=== PATIENT | female | born 1940 | race Caucasian/White ===

== ENCOUNTER 2016-10-27 22:15 | Inpatient (IN) | payer MEDICARE ==
--- NOTE | ~2016-10-27 | CR63 ---
[facility] A Service of [facility] RADIOLOGY TEXT RESULTS PATIENT: HOLDEN GARCIA LOCATION: [facility] 567-01 : 39 UNIT #: [id number] AGE: [address]: Yesy Pan MD SEX: F ORDER DR: [id number] [facility] [address] [place], [place] [address] [id number] I MR#: [id number] Acc #: [id number] NAME: HOLDEN GARCIA. : 1940 SEX: F STUDY DATE/TIME: 10/27/2016 22:41 UNIT: CEDOF ROOM: 65087 STUDY DESCRIPTION: CR Chest 2 View Attending Physician: Magnolia Wallace M.D. Ordering Physician: Bryson Chino D.O. Primary Care Physician: David Barajas M.D. MEDICAL IMAGING REPORT This report is preliminary unless electronic signature is present EXAM Two-view chest 10/27/2016 INDICATIONS 76-year-old female with weakness, right-sided hip and leg pain, laid on the floor all last night after fall. History of skin cancer. TECHNIQUE Two-view chest compared with 12/14/2011 FINDINGS Cardiac silhouette is enlarged and stable. Lung volumes are low. There is interstitial prominence throughout both lungs favored to represent chronic interstitial fibrosis rather than acute mild vascular congestion. Correlate with volume status. There is old healed granulomatous disease. No pneumothorax or effusion. Hiatal hernia present. Bones are osteoporotic. IMPRESSION 1. Cardiomegaly with low lung volumes and probable chronic fibrosis rather than acute mild volume overload. 2. Osteoporosis and thoracic kyphosis and spondylosis. 3. Hiatal hernia. Dictated by... Evangelist Blanc M.D. THIS IS AN ELECTRONICALLY VERIFIED REPORT Evangelist Blanc M.D. at 10/28/2016 9:56 PM Annie TD: 10/28/2016 07:01 JOB #: [id number] [facility] A Service of [facility] RADIOLOGY TEXT RESULTS PATIENT: HOLDEN GARCIA LOCATION: [facility] 567-01 : 39 UNIT #: [id number] AGE: [address]: Yesy Pan MD SEX: F ORDER DR: MEDICAL IMAGING REPORT Page 1 of 1 COPY
--- NOTE | ~2016-10-27 | US84 ---
[id number] [facility] [address] [place], [place] [address] [id number] I MR#: [id number] Acc #: [id number] NAME: HOLDEN GARCIA : 1940 SEX: F STUDY DATE/TIME: 10/28/2016 8:12 UNIT: [facility] ROOM: 21111 STUDY DESCRIPTION: US LE Veins Complete Dhruv Stdy Attending Physician: Yesy Pan M.D. Ordering Physician: Magnolia Wallace M.D. Primary Care Physician: David Barajas M.D. MEDICAL IMAGING REPORT This report is preliminary unless electronic signature is present EXAM Bilateral lower extremity venous Doppler INDICATION Bilateral leg pain for the past several years. PROCEDURE Hamilton-scale, color Doppler and spectral imaging deep veins of the right and left leg. COMPARISON None. FINDINGS Deep veins in right and left leg compress normally, show normal color Doppler and spectral characteristics. IMPRESSION No evidence for DVT in the right or left leg. Dictated by... Jed Baez M.D. THIS IS AN ELECTRONICALLY VERIFIED REPORT Jed Baez M.D. at 10/29/2016 9:38 AM YURY/taylor TD: 10/28/2016 09:47 JOB #: [id number] MEDICAL IMAGING REPORT Page 1 of 1 COPY
--- NOTE | ~2016-10-27 | CR107 ---
[facility] A Service of [facility] RADIOLOGY TEXT RESULTS PATIENT: HOLDEN GARCIA LOCATION: [facility] 567-01 : 39 UNIT #: [id number] AGE: [address]: Yesy Pan MD SEX: F ORDER DR: [id number] [facility] [address] [place], [place] [address] [id number] I MR#: [id number] Acc #: [id number] NAME: HOLDEN GARCIA. : 1940 SEX: F STUDY DATE/TIME: 10/27/2016 22:33 UNIT: CEDOF ROOM: 59650 STUDY DESCRIPTION: CR Femur 2 Views Rt Attending Physician: Magnolia Wallace M.D. Ordering Physician: Bryson Chino D.O. Primary Care Physician: David Barajas M.D. MEDICAL IMAGING REPORT This report is preliminary unless electronic signature is present EXAM Right femur, 2 views COMPARISON 2 views of the right hip dated December 14, 2011. INDICATION 76-year-old female with right upper leg pain after falling last night. FINDINGS Surgical clips are noted in the proximal thigh. These extend down to the level of the knee and just below the knee as well in the posterior aspect of the thigh. There are diffuse arterial calcifications within the thigh. There is a large osteophyte at the superior pole of the patella. There is chondrocalcinosis at the lateral compartment of the knee a finding which can be seen in pseudogout. Femur appears anatomically aligned. There is joint space narrowing, sclerosis and osteophyte formation at the right hip. There is somewhat of a pistol pain coordinator deformity of the right femoral head, chronic in nature and degenerative. No evidence of acute fracture. Right femur appears anatomically aligned. IMPRESSION 1. No evidence of acute fracture or dislocation of the right femur. 2. Advanced osteoarthritis of the right hip as described. 3. Large osteophyte superior pole of the patella. 4. Chondrocalcinosis a finding which can be seen in pseudogout or normal aging. 5. Diffuse arterial calcification in the thigh. Dictated by... Arben Leos M.D. [facility]. [facility] A Service of [facility] RADIOLOGY TEXT RESULTS PATIENT: HOLDEN GARCIA LOCATION: [facility] 567-01 : 39 UNIT #: [id number] AGE: [address]: Yesy Pan MD SEX: F ORDER DR: THIS IS AN ELECTRONICALLY VERIFIED REPORT Arben Leos M.D. at 10/30/2016 9:29 AM Tawanda TD: 10/28/2016 06:56 JOB #: [id number] MEDICAL IMAGING REPORT Page 1 of 1 COPY
--- NOTE | ~2016-10-27 | EKG ---
PATIENT: HOLDEN GARCIA UNIT #: [id number] Ventricular Rate: 65 BPM Atrial Rate: 65 BPM P-R Interval: 168 ms QRS Duration: 134 ms Q-T Interval: 442 ms QTC Calculation(Bezet): 459 ms P [place]: 57 degrees Calculated R [place]: 70 degrees Calculated T [place]: 53 degrees Diagnosis Line: Normal sinus rhythm with sinus arrhythmia Diagnosis Line: Right bundle branch block with repolarization Diagnosis Line: abnormality Diagnosis Line: Abnormal ECG Diagnosis Line: No previous ECGs available Diagnosis Line: Confirmed by AUGUSTINE ROBERTS MD ([id number]) on 10/28/2016 Diagnosis Line: 9:19:56 PM INTERPRETING MD: ARMANDO SANCHEZ
--- NOTE | ~2016-10-27 | CR106 ---
[facility] A Service of [facility] RADIOLOGY TEXT RESULTS PATIENT: HOLDEN GARCIA LOCATION: [facility] 567-01 : 39 UNIT #: [id number] AGE: [address]: Yesy Pan MD SEX: F ORDER DR: [id number] [facility] [address] [place], [place] [address] [id number] I MR#: [id number] Acc #: [id number] NAME: HOLDEN GARCIA. : 1940 SEX: F STUDY DATE/TIME: 10/27/2016 22:33 UNIT: CEDOF ROOM: 88927 STUDY DESCRIPTION: CR Femur 2 Views Lt Attending Physician: Magnolia Wallace M.D. Ordering Physician: Bryson Chino D.O. Primary Care Physician: David Barajas M.D. MEDICAL IMAGING REPORT This report is preliminary unless electronic signature is present EXAM Left femur, 2 views. COMPARISON 2 views of the right femur on the same date. INDICATIONS 76-year-old female with left upper leg pain since falling last night. FINDINGS There is chondrocalcinosis within the medial and lateral compartments of the knee, a finding which can be seen in pseudogout. There are arterial calcifications within the left thigh. These extend posterior to the knee. There is bulky osteophyte, superior pole of the patella, with an inferior pole small osteophyte. The left femur appears anatomically aligned. No evidence of acute fracture. Skin fold artifact or artifact from undergarment is noted to pass through the superior and inferior pubic ramus on the left on the single view, which did not persist on the second view. Left femur appears intact. IMPRESSION 1. No evidence of acute fracture or dislocation of the left femur. 2. Chondrocalcinosis of the knee, a finding which can be seen in normal aging or pseudogout. 3. Diffuse arterial calcification in the left thigh. Dictated by... Arben Leos M.D. THIS IS AN ELECTRONICALLY VERIFIED REPORT Arben Leos M.D. at 10/30/2016 9:28 AM KEDAR/lisette [facility]. [facility] A Service of [facility] RADIOLOGY TEXT RESULTS PATIENT: HOLDEN GARCIA LOCATION: [facility] 567-01 : 39 UNIT #: [id number] AGE: [address]: Yesy Pan MD SEX: F ORDER DR: TD: 10/28/2016 07:26 JOB #: [id number] MEDICAL IMAGING REPORT Page 1 of 1 COPY
--- NOTE | ~2016-10-27 | HM ---
Unit #: [id number] #: [id number] Patient: HOLDEN GARCIA [id number] [address] [place], [place] [address] [id number] I MR#: [id number] NAME: HOLDEN GARCIA. : 1940 SEX: F STUDY DATE/TIME: 10/30/2016 UNIT: [facility] ROOM: 567 STUDY DESCRIPTION: Holter monitor Attending Physician: Radha Reich M.D. Primary Care Physician: David Barajas M.D. CARDIOLOGY REPORT EXAM Holter monitor. DATE APPLIED 10/30/2016 DATE SCANNED 11/02/[address] Gareth Quintana READ BY Dr. Gareth Quintana INDICATION Falls FINDINGS 1. The rhythm is normal sinus. Minimum recorded heart rate is 39 beats per minute, maximum recorded heart rate 110 beats per minute. 2. Very frequent premature ventricular contractions are noted, unifocal and multiform. There were 9,503 isolated PVCs and 149 premature ventricular couplets. There was no run of ventricular tachycardia. Computer misinterpreted SVT as ventricular tachycardia. Very frequent premature atrial contractions are noted with 11,271 isolated PACs and 576 premature atrial couplets. There were 131 runs of supraventricular tachycardia. A four beat run of SVT is seen at 3:19 p.m. at a rate of 152 beats per minute. All runs of SVT convert back to normal sinus rhythm without intervening bradycardia. There were no periods of AV jeanette block, sinus arrest or sinus pause. 3. The patient did not report any symptoms or maintain an activity diary. IMPRESSION Abnormal 24-hour ambulatory monitoring shows: 1. Normal sinus rhythm. 2. Frequent PVCs. 3. Very frequent PACs. 4. Paroxysmal supraventricular tachycardia with right bundle branch block aberrant conduction. 5. No high-grade AV block, sinus arrest or sinus pause. 6. No symptom diary was maintained. Unit #: [id number] #: [id number] Patient: HOLDEN GARCIA Dictated by... Gareth Quintana M.D. AKU/gaston TD: 11/06/2016 06:06 JOB #: [id number] CARDIOLOGY REPORT Page 1 of 1 X Gareth Quintana MD HOLTER MONITOR REPORT
--- NOTE | ~2016-10-27 | CO ---
Unit #: [id number] #: [id number] Patient: HOLDEN WHITFIELD [id number] [facility] [address] [place], [place] [address] [id number] I MR#: [id number] NAME: HOLDEN WHITFIELD. ROOM: 567 Age: 76 Sex: F Admission Date: 10/28/2016 : 1940 Attending Physician: Radha Reich M.D. Primary Care Physician: David Barajas M.D. Consultation Date: 10/30/2016 CONSULTATION REPORT REASON FOR CONSULTATION Sinus bradycardia, PVCs, PACs. HISTORY OF PRESENT ILLNESS This is a 76-year-old white female who has a known history of having ischemic cardiomyopathy with a history of CABG back in 1999 and in 2011 had a cardiac catheterization by Dr. Quintana here at [facility] that showed three of four grafts were patent. The saphenous vein graft to the marginal branch was occluded but had collaterals, and there was also found an 80% stenosis in the proximal RCA. Also, at the time of the heart catheterization, her LVEF was found to be 20%. He thought it was Takotsubo cardiomyopathy. Previous echo showed her EF was 60%. He recommended medical management. According to the patient, she has never followed up with any business writer since that time. She used to see Dr. Miranda with another cardiology practice in [facility] but has not seen him in some time. Patient was admitted two days ago after she was walking in her home and her gait became unsteady, her legs gave out, and she fell. She reports to me that she did not have a syncopal episode. She says that she has been falling frequently. One day a few weeks ago she fell four times in one day. This time she states she was walking in the [place], and then she said she could tell her legs were giving out. She said that is usually what happens. Her legs gave way, and she fell on the floor. She denied any acute injury, but she was too weak to pull herself up. She did have her house phone nearby, but she did not want to call her children because she thought they would be at work. She estimates that she was laying down on the floor for about 15 hours. She denied any dizziness. As mentioned, she does not think she passed out. No loss of bowel or bladder. She denied any chest pain, pain in her neck or bilateral jaws, shoulders, arms, or elbows, no palpitations, and no shortness of breath. She has not had any recent nausea, vomiting, diarrhea, or abdominal pain, and no fever or chills. Patient has been treated since admission for some mild rhabdo and a UTI. She was hypotensive after receiving some IV morphine and lisinopril. That has been stopped yesterday. Her labs also show pancytopenia, and she initially thought she might have been septic, but she has been afebrile and her blood pressure is more stable. Her EKG on admission showed sinus rhythm with a right bundle branch block. She does have a Holter on and today is showing some sinus rhythm with frequent PACs and frequent PVCs with compensatory pauses, then her heart rate slows down to the upper 30s, and patient is asymptomatic. We have been consulted to assist with evaluation and management. Unit #: [id number] #: [id number] Patient: HOLDEN WHITFIELD PAST MEDICAL HISTORY 1. Ischemic cardiomyopathy. 2. Coronary artery disease with history of coronary artery bypass graft in 1999. 3. Last reported cardiac cath was in 2011 which revealed a patent WHITMORE to the LAD, patent saphenous vein graft to the PDA branch of the RCA, patent saphenous vein graft to the first diagonal branch of the LAD, occluded saphenous vein graft to the marginal branch of the circumflex that was filling with collaterals, and also an 80% stenosis in the proximal RCA. Left ventricular ejection fraction was 20%. Takotsubo cardiomyopathy with noted previous ejection fraction of 60%. Recommendation by Dr. Quintana was medical management and followup. 4. A 2D echo in 2012 showed an LVEF of 10% to 15% with large area of anterior, anteroseptal, and apical akinesis consistent with a myocardial infarction, mild to moderate mitral regurgitation and mild to moderate tricuspid regurgitation with elevated RVSP of 40-50 mmHg. 5. Hypertension. 6. Hyperlipidemia. 7. Hypothyroidism. 8. Degenerative joint disease and chronic back pain. 9. Gastroesophageal reflux disease. 10. Anxiety and depression. 11. Reformed smoker. 12. Frequent falls. PAST SURGICAL HISTORY 1. Coronary artery bypass graft in 1999. 2. Cholecystectomy. 3. Hysterectomy. 4. Appendectomy. 5. Melanoma removed from the face. HOME MEDICATIONS 1. Celexa 40 mg p.o. daily. 2. Lisinopril 10 mg p.o. daily. 3. Lipitor 40 mg p.o. daily. 4. Synthroid 0.088 mg daily. 5. Neurontin 200 mg p.o. 3 times daily. 6. Ultram 50 mg p.o. 3 times daily as needed. 7. Lasix dosage unavailable but patient states she takes it p.r.n. ALLERGIES SULFONAMIDES SOCIAL HISTORY Patient lives in her own home alone. She lives with her dog. We have been told her daughter lives nearby. She uses a cane and walker and she has a wheelchair. She quit smoking about 20 years ago and no alcohol or illicit drug abuse. FAMILY HISTORY Both parents are from unknown causes. She had a sister who at the age of 57 from a myocardial infarction. REVIEW OF SYSTEMS See details in History of Present Illness. Unit #: [id number] #: [id number] Patient: HOLDEN WHITFIELD PHYSICAL EXAMINATION GENERAL: On exam, Miss Whitfield is a 76-year-old white female in no acute respiratory distress. She is awake, alert, and answers most questions appropriately. She has some noted poor memory recall. VITAL SIGNS: Blood pressure 124/58, heart rate 53, respirations 18, temperature 98.3, and oxygen saturations 93% on room air. NECK: Trachea midline. No thyromegaly or lymphadenopathy. Normal carotid upstrokes. No jugular venous distention. HEART: S1 and S2, regular rate and rhythm. Soft systolic murmur left sternal border. LUNGS: Some bilateral fine rales in the bases. ABDOMEN: Obese, soft, and nontender. EXTREMITIES: Pedal pulses are palpable. There is 1+ pedal edema. DIAGNOSTIC STUDIES LABORATORY: Today's labs: Glucose 78, BUN 12, creatinine 0.9, eGFR 61.7, sodium 135, potassium 3.7, chloride 109, CO2 of 23, and calcium 7.7. On admission, patient's creatinine was 1.2 with an eGFR of 43.6. Total protein 7.3, albumin 3.7, bilirubin total 1, AST 84, ALT 22, and alkaline phosphatase is 121. BNP on admission was 329. TSH was 0.32 and then increased her Synthroid at 0.35. WBC 3, hemoglobin 10.4, hematocrit 31.6, and platelets 110,000. On admission, patient's hemoglobin was 12.5 and hematocrit 38.9. Urinalysis shows 1+ leukocyte esterase, 1+ protein, 1 urobilinogen, 1+ blood, 5-10 RBCs, and 10-25 WBCs. Blood cultures are negative preliminary report. Urine culture preliminary report negative. IMAGING: Chest x-ray shows cardiomegaly with low lung volumes and probable chronic fibrosis rather than acute mild volume overload, osteoporosis and thoracic kyphosis and spondylosis, and hiatal hernia. CT of the head without contrast shows atrophy and chronic ischemic changes. Ultrasound of bilateral lower extremities shows no evidence of DVT. CARDIOLOGY: EKG on admission shows normal sinus rhythm with a right bundle branch block. Telemetry today shows sinus bradycardia with frequent premature atrial contractions and frequent premature ventricular contractions with compensatory pause with heart rate as slow as 38 beats per minute. IMPRESSION 1. Frequent falls with lower extremity weakness. 2. Questionable syncope versus near syncope. 3. Mild rhabdomyolysis. 4. Premature atrial contractions, premature ventricular contractions, and sinus bradycardia. 5. Coronary artery disease with previous coronary artery bypass graft in 1999 with three of four grafts found patent on 2012 catheterization. 6. History of Takotsubo cardiomyopathy with left ventricular ejection fraction of 20% back in 2012. 7. Hypertension. 8. Hyperlipidemia. 9. Neuropathy. 10. Pancytopenia. 11. Hypothyroidism. 12. Hyperlipidemia. PLAN 1. Cardiology consulted to assist with evaluation and management. Unit #: [id number] #: [id number] Patient: HOLDEN WHITFIELD Reviewed patient's medications she is currently on and there is nothing that is thought to slow her heart rate down. She has a 24-hour Holter on. Patient's TSH level was 0.32 and her Synthroid was increased. Today, TSH is 0.35. 2. Will stop her IV fluids, and because she has had increased lower extremity edema and a few faint rales in her bases, will check a BNP. Patient's creatinine is 0.9 today and had mild rhabdo on admission so will not give any IV Lasix at his point but wait for the labs. She does not have any acute distress. 3. Check a magnesium level because she is having occasional frequent PVCs. Her potassium level is 3.7. 4. Obtain a 2D echo to reevaluate her LV function and valves. 5. Obtain a fasting lipid profile and evaluate. 6. Cardiac enzymes initially on admission were negative. Her EKG does not show any acute ischemia. 7. Her rhythm may be secondary from ischemia or cardiomyopathy. 8. Further recommendations pending per Dr. Quintana. Thank you very much for allowing us to assist in her care. Dictated by... Tiago WassermanPSundayRNitin for Cheryl Juárez/dev TD: 11/01/2016 17:13 JOB #: [id number] CONSULTATION REPORT Page 1 of 1 X Leslie Huggins APRN X CONSULTATION REPORT
--- NOTE | ~2016-10-27 | DS ---
Unit #: [id number] #: [id number] Patient: HOLDEN GARCIA [id number] [address] [place], [place] [address] [id number] I MR#: [id number] NAME: HOLDEN GARCIA. ROOM: 567 Age: 76 Sex: F Admission Date: 10/28/2016 : 1940 Discharge Date: Attending Physician: Radha Reich M.D. Primary Care Physician: David Barajas M.D. DISCHARGE SUMMARY DISCHARGE SUMMARY/TRANSFER SUMMARY FINAL DIAGNOSES 1. Syncope secondary to sick sinus syndrome. 2. Rhabdomyolysis. 3. Urinary tract infection. SECONDARY DIAGNOSES 1. Ischemic cardiomyopathy with ejection fraction of 10% to 15%. 2. Hypertension. 3. Hyperlipidemia. 4. Hypothyroidism. 5. Degenerative joint disease. 6. Chronic back pain. 7. Anxiety/depression. CONSULTS Cardiology - Dr. Quintana. HOSPITAL COURSE The patient is a 76-year-old female with a history of cardiomyopathy who basically had a syncopal episode at home and had some mild rhabdomyolysis. She was managed on the floor and evaluated by cardiology. Evaluation by cardiology determined that she did have evidence of sick sinus syndrome. The patient has been discussed with Dr. Calderón and the plan at this point is to have her transferred to [facility] for pacemaker installed. She was evaluated, suitable and stable for transfer and will be transferred in stable condition. MEDICATIONS Medications on transfer include: 1. Tylenol 650 mg p.o. q.4 hourly p.r.n. 2. Lovenox 40 mg subcu every 24 hours. 3. Neurontin 100 mg p.o. three times a day. 4. Celexa 40 mg p.o. every morning. 5. Lipitor 40 mg p.o. at bedtime. 6. Motrin 400 mg p.o. every six hours p.r.n. for elevated temperature. 7. Tramadol 50 mg p.o. q.8 hours p.r.n. 8. Protonix 40 mg p.o. daily. 9. Synthroid 75 mcg p.o. q. a.m. 10. Vitamin B12 1000 mcg subcu daily. 11. Ceftriaxone 1 g IV daily for UTI. She will be transferred in a stable condition. Unit #: [id number] #: [id number] Patient: HOLDEN GARCIA Time spent coordinating discharge is about 35 minutes. The patient has been discussed with cardiology service prior to transfer. Should be NPO before transfer. Dictated by... Cheryl Gillespie TD: 11/02/2016 09:30 JOB #: [id number] DISCHARGE SUMMARY Page 1 of 1 X Radha Reich MD X DISCHARGE SUMMARY
--- NOTE | ~2016-10-27 | EKG ---
PATIENT: HOLDEN GARCIA UNIT #: [id number] Ventricular Rate: 62 BPM Atrial Rate: 62 BPM P-R Interval: 154 ms QRS Duration: 126 ms Q-T Interval: 518 ms QTC Calculation(Bezet): 525 ms P [place]: 63 degrees Calculated R [place]: 50 degrees Calculated T [place]: 75 degrees Diagnosis Line: Normal sinus rhythm Diagnosis Line: Right bundle branch block Diagnosis Line: Abnormal ECG Diagnosis Line: No previous ECGs available Diagnosis Line: Confirmed by MELISSA JEAN MD ([id number]) on 11/03/2016 Diagnosis Line: 10:50:57 PM INTERPRETING MD: MIRANDA SANCHEZ
--- NOTE | ~2016-10-27 | CT71 ---
[facility] A Service of [facility] RADIOLOGY TEXT RESULTS PATIENT: HOLDEN GARCIA LOCATION: [facility] [id number] : 39 UNIT #: [id number] AGE: [address]: Yesy Pan MD SEX: F ORDER DR: [id number] [facility] [address] [place], [place] [address] [id number] MR#: [id number] Acc #: [id number] NAME: HOLDEN GRACIA. : 1940 SEX: F STUDY DATE/TIME: 10/27/2016 22:50 UNIT: CEDOF ROOM: 28882 STUDY DESCRIPTION: CT Head Wo Contrast Attending Physician: Magnolia Wallace M.D. Ordering Physician: Bryson Chino D.O. Primary Care Physician: David Barajas M.D. MEDICAL IMAGING REPORT This report is preliminary unless electronic signature is present EXAM Head CT no contrast 10/27/2016 INDICATIONS 76-year-old female with weakness, fell last night, headache, dizziness, confusion. TECHNIQUE Noncontrast CT of the brain was performed. COMPARISON 12/14/2011. This CT exam was performed with one or more of the following radiation dose reduction techniques: automatic exposure control, adjustment of mA and/or kV according to patient size, and iterative reconstruction. FINDINGS CT brain: There is mild generalized atrophy. Sulci and ventricles otherwise unremarkable. No midline shift. No evidence of acute intracranial hemorrhage. There is no mass, mass effect or edema to suggest acute infarct and no extraaxial fluid collections are present. There is some mild periventricular chronic ischemic change. Globes are intact. Bones are intact. Sinuses clear. IMPRESSION Atrophy and chronic ischemic changes. No clearly acute intracranial process. Dictated by... Evangelist Blanc M.D. THIS IS AN ELECTRONICALLY VERIFIED REPORT [facility] A Service of [facility] RADIOLOGY TEXT RESULTS PATIENT: HOLDEN GARCIA LOCATION: [facility] [id number] : 39 UNIT #: [id number] AGE: [address]: Yesy Pan MD SEX: F ORDER DR: Evangelist Blanc M.D. at 10/28/2016 9:57 PM Annie TD: 10/28/2016 06:55 JOB #: [id number] MEDICAL IMAGING REPORT Page 1 of 1 COPY
--- NOTE | ~2016-10-27 | HP ---
Unit #: [id number] #: [id number] Patient: HOLDEN GARCIA [id number] [address] [place], [place] [address] [id number] MR#: [id number] NAME: HOLDEN GARCIA. ROOM: 30224 Age: 76 Sex: F Admission Date: 10/28/2016 : 1940 Attending Physician: Magnolia Wallace M.D. Primary Care Physician: David Barajas M.D. HISTORY AND PHYSICAL CHIEF COMPLAINT Fall versus syncope, patient was found down, mild rhabdo, weakness. HISTORY This pleasant 76-year-old female with ischemic cardiomyopathy, hypertension, DJD, hypothyroidism, is admitted after being found down. The patient is unsure what occurred. Two nights ago she either fell on the floor or passed out. She does not remember. However, she did not want to bother family, and she laid on the floor for 25 hours before she called her family. She was brought to this emergency department late last evening with stable vital signs. Labs are notable for mild rhabdomyolysis. She currently is receiving IV fluids at 150 mL/hour. She is complaining of pain in her thighs and calves, is unable to ambulate secondary to pain. PAST MEDICAL HISTORY 1. Ischemic cardiomyopathy, ejection fraction 10% to 15% with mild to moderate MR and TR on echo 12/2011. Patient is status post four vessel CABG in 1999. 2. Hypertension. 3. Hyperlipidemia. 4. Hypothyroidism. 5. DJD. 6. Chronic back pain. 7. GERD. 8. Anxiety and depression. 9. Melanoma removed from the face. 10. Diverticular disease. 11. Cholecystectomy. 12. Hysterectomy. 13. Appendectomy. ALLERGIES Sulfa. HOME MEDICATIONS I have a Med Rec sheet which lists: 1. Celexa 40 mg daily. 2. Lisinopril 10 mg daily. 3. Lipitor 40 mg daily. 4. Synthroid 0.088 mg daily. 5. Neurontin 200 mg t.i.d. 6. Ultram 50 mg t.i.d. as needed. Unit #: [id number] #: [id number] Patient: HOLDEN GARCIA FAMILY HISTORY CAD. SOCIAL HISTORY The patient lives with Pugly, her dog. Daughter lives near her, I believe. The patient uses a cane and/or walker. She stopped smoking about 20 years ago. Does not drink alcohol. REVIEW OF SYSTEMS Notable for fall versus syncope, leg pain, weakness in the legs, ischemic cardiomyopathy, hypertension, hyperlipidemia, hypothyroidism, DJD, chronic pain, GERD, melanoma, depression, above mentioned surgeries. All other systems were reviewed and are otherwise negative. PHYSICAL EXAMINATION GENERAL APPEARANCE: Pleasant, mildly confused appearing 76-year-old, moderately obese female, currently in no acute distress. VITAL SIGNS: Temperature 98.5, pulse 66, respirations 18, blood pressure 113/55, O2 saturation 97% on room air. HEENT: Eyes PERRLA. Extraocular muscles are intact. Pharynx - poor dentition but benign. NECK: Supple without adenopathy or thyromegaly. CHEST: Clear. CARDIAC: Normal S1 and S2 without definite murmur. ABDOMEN: Bowel sounds are present. No hepatosplenomegaly, tenderness or masses. EXTREMITIES: Without edema. Pedal pulses are present but somewhat diminished. The patient is tender in the thighs and calves and develops quite a bit of discomfort with movement of her legs bilaterally. NEUROLOGIC EXAM: The patient seems a bit confused but is actually alert and oriented x3. Her cranial nerves are intact. She had equal strength throughout but is weak in the legs, possibly in part because of pain. DIAGNOSTIC STUDIES LABORATORY: Admission labs - hematocrit is 38.9, white blood count is 3.9, platelet count is 130. SMA-12 - sodium 133, chloride is 99, AST is 84, alk. phos. 121. CPK is 23,000. BNP is 329. Troponin is negative. Urine - positive leukocyte esterase, blood, with 5-10 red cells, 10-25 white cells but no bacteria. Moderate squamous cells seen. CARDIOVASCULAR: EKG - normal sinus rhythm, rate 65 with an old right bundle branch block noted. Occasional APC noted. IMAGING: Head CT - atrophy, small vessel ischemic disease but nothing acute. X-rays of the femurs bilaterally negative for fracture. DJD noted, along with chondrocalcinosis and arterial calcification. Chest x-ray - cardiomegaly, low lung volumes, likely chronic fibrosis, hiatal hernia. ASSESSMENT 1. Fall versus syncope: The patient was on the floor for 25 hours. Has Unit #: [id number] #: [id number] Patient: HOLDEN GARCIA mild rhabdomyolysis and complains of thigh and calf pain. 2. Mild rhabdomyolysis. 3. Ischemic cardiomyopathy, ejection fraction 10% to 15% on echo 2011, status post four vessel coronary artery bypass graft. 4. Essential hypertension. 5. Hypothyroidism. 6. Degenerative joint disease. 7. Mild pyuria but positive squamous cells seen. 8. Perhaps some mild dementia, I am unsure at this point. PLANS 1. Gentle IV fluids in the ER, then Hep-Lock. 2. Recheck labs this morning and repeat cardiac enzymes. 3. Holter monitor. 4. Obtain TSH and B12 levels. 5. Obtain venous Dopplers of the legs. 6. DVT prophylaxis. 7. tipple worker and physical therapy to see. 8. Await urine cultures and will give one dose of antibiotics. Dictated by Cheryl Tejada/df TD: 10/28/2016 06:42 JOB #: [id number] HISTORY AND PHYSICAL Page 1 of 1 X Magnolia Wallace MD X HISTORY AND PHYSICAL
[~2016-10-27 22:15] MED LIST: ALPRAZOLAM ER1 MG PO; ASPIRIN PO; ATENOLOL PO; ATORVASTATIN CA80 MG PO; CELEXA PO; CITALOPRAM HBR40 MG PO; EVISTA60 M1 PO; EVISTA60 MG PO; FLAGYL PO; HYDROCODON-ACE1 EAC5 PO; HYDROCODONE-APA1 T33 PO; LEVAQUIN PO; LIPITOR PO; LISINOPRIL PO; LISINOPRIL10 MG PO; NEXIUM PO; PLETAL50 MG PO; SOMA PO; SYNTHROID PO; SYNTHROID0.1 MG PO
[2016-10-27 22:28] LABS: POC - CKMB 10.8 ng/mL (0.0-7.9); POC - TROPONIN <0.05 ng/mL (<=0.05)
[2016-10-27 22:34] LABS: BASOPHIL# 0.1 X10e3 (0-0.3); BASOPHIL% 1.4 % (0-2.5); EOSINOPHIL% 0.1 % (0.0-7.0); HEMATOCRIT 38.9 % (35.0-45.0); HEMOGLOBIN 12.5 gm/dL (12.0-16.0); LYMPHOCYTE# 0.5 X10e3 (1.0-3.5); LYMPHOCYTE% 13.9 % (17.0-45.0); MEAN CELL VOLUME 99.9 FL (83-96); MEAN CORPUSCULAR HEMOGLOBIN 32.2 PG (28-34); MEAN CORPUSCULAR HGB CONC 32.2 g/dL (30-36); MEAN PLATELET VOLUME 8.5 FL (6.5-11.5); MONOCYTE# 0.6 X10e3 (0-1.0); MONOCYTE% 14.9 % (3.0-12.0); NEUTROPHIL# 2.7 X10e3 (1.5-7.1); NEUTROPHIL% 69.7 % (40-75); PLATELET COUNT 130 X10e3 (140-420); RED BLOOD COUNT 3.89 X10e (3.90-5.30); WHITE BLOOD COUNT 3.9 X10e3 (4.0-10.5)
[2016-10-27 22:37] LABS: DIFF IND NO
[2016-10-27 22:47] LABS: PARTIAL THROMBOPLASTIN TIME 27.8 SECONDS (23.5-31.3)
[2016-10-27] MEDS ORDERED: CITALOPRAM HBR40 MG PO (23:21)
[2016-10-27] MEDS ORDERED: LISINOPRIL10 MG PO (23:22)
[2016-10-27] MEDS ORDERED: LIPITOR40 MG PO (23:22)
[2016-10-27] MEDS ORDERED: LEVOTHYROXINE88 MCG PO (23:23)
[2016-10-27] MEDS ORDERED: NEURONTIN100 MG PO (23:23)
[2016-10-27] MEDS ORDERED: TRAMADOL HCL50 M2 PO (23:24)
[2016-10-27 23:26] LABS: ALBUMIN SERUM 3.7 g/dL (3.5-5.0); BILIRUBIN, DIRECT 0.2 mg/dL (0.0-0.2); BILIRUBIN,INDIRECT 0.8 mg/dL (0.0-0.9); BUN/CREATININE RATIO 13.33; CALCIUM SERUM 8.7 mg/dL (8.4-10.2); CREATININE SERUM 1.2 mg/dL (0.6-1.4); GLOM FILT RATE Estimated 43.6 mL/min (>60); POTASSIUM 4.5 mmol/L (3.5-5.1); PROTEIN TOTAL SERUM 7.3 g/dL (6.0-8.3)
[2016-10-28 01:22] LABS: POC - CKMB 7.1 ng/mL (0.0-7.9); POC - TROPONIN <0.05 ng/mL (<=0.05)
[2016-10-28 01:52] LABS: URINE SOURCE CLEAN CATCH
[2016-10-28 02:12] LABS: URINE APPEARANCE CLEAR; URINE BILIRUBIN NEG (NEG); URINE BLOOD 1+ (NEG); URINE COLOR YELLOW; URINE GLUCOSE NEG (NEG); URINE KETONE NEG (NEG); URINE LEUKOCYTE ESTERASE 1+ (NEG); URINE NITRATE NEG (NEG); URINE PROTEIN 1+ (NEG); URINE SPECIFIC GRAVITY 1.018 (1.003-1.035)
[2016-10-28 02:15] LABS: CULTURE INDICATED? YES; URINE BACTERIA AUWI NEG (NEGATIVE); URINE SQUAMOUS EPITHELIAL CELL MOD /[HPF]
[2016-10-28 07:10] LABS: BASOPHIL% 0.9 % (0-2.5); HEMATOCRIT 33.9 % (35.0-45.0); LYMPHOCYTE# 0.8 X10e3 (1.0-3.5); LYMPHOCYTE% 21.1 % (17.0-45.0); MEAN CELL VOLUME 99.5 FL (83-96); MEAN CORPUSCULAR HEMOGLOBIN 32.4 PG (28-34); MEAN CORPUSCULAR HGB CONC 32.5 g/dL (30-36); MEAN PLATELET VOLUME 8.2 FL (6.5-11.5); MONOCYTE# 0.7 X10e3 (0-1.0); MONOCYTE% 16.5 % (3.0-12.0); NEUTROPHIL# 2.5 X10e3 (1.5-7.1); NEUTROPHIL% 61.5 % (40-75); PLATELET COUNT 110 X10e3 (140-420); RED BLOOD COUNT 3.41 X10e (3.90-5.30); RED CELL DISTRIBUTION WIDTH 12.9 % (11.0-15.5)
[2016-10-28 07:11] LABS: DIFF IND NO
[2016-10-28 07:55] LABS: CALCIUM SERUM 7.8 mg/dL (8.4-10.2); GLOM FILT RATE Estimated 54.3 mL/min (>60); POTASSIUM 4.2 mmol/L (3.5-5.1)
[2016-10-28 08:10] LABS: %MB 0.3 % (0.0-4.0); MB 5.8 ng/ml
[2016-10-28 14:03] LABS: %MB 0.3 % (0.0-4.0); MB 4.5 ng/ml
[2016-10-28] MEDS ORDERED: NEXIUM 24HR20 MG PO (17:36)
[2016-10-29 05:27] LABS: HEMATOCRIT 32.6 % (35.0-45.0); HEMOGLOBIN 10.7 gm/dL (12.0-16.0); MEAN CELL VOLUME 98.9 FL (83-96); MEAN CORPUSCULAR HEMOGLOBIN 32.3 PG (28-34); MEAN CORPUSCULAR HGB CONC 32.7 g/dL (30-36); MEAN PLATELET VOLUME 8.5 FL (6.5-11.5); RED BLOOD COUNT 3.29 X10e (3.90-5.30); RED CELL DISTRIBUTION WIDTH 13.3 % (11.0-15.5); WHITE BLOOD COUNT 3.2 X10e3 (4.0-10.5)
[2016-10-29 06:19] LABS: CALCIUM SERUM 7.9 mg/dL (8.4-10.2); GLOM FILT RATE Estimated 54.3 mL/min (>60); POTASSIUM 4.6 mmol/L (3.5-5.1)
[2016-10-30 07:47] LABS: HEMATOCRIT 31.6 % (35.0-45.0); HEMOGLOBIN 10.4 gm/dL (12.0-16.0); MEAN CELL VOLUME 99.3 FL (83-96); MEAN CORPUSCULAR HEMOGLOBIN 32.7 PG (28-34); MEAN CORPUSCULAR HGB CONC 32.9 g/dL (30-36); MEAN PLATELET VOLUME 8.7 FL (6.5-11.5); RED BLOOD COUNT 3.18 X10e (3.90-5.30); RED CELL DISTRIBUTION WIDTH 13.1 % (11.0-15.5)
[2016-10-30 09:14] LABS: BUN/CREATININE RATIO 13.33; CALCIUM SERUM 7.7 mg/dL (8.4-10.2); CREATININE SERUM 0.9 mg/dL (0.6-1.4); GLOM FILT RATE Estimated 61.7 mL/min (>60); POTASSIUM 3.7 mmol/L (3.5-5.1)
[2016-10-31 09:02] LABS: HEMATOCRIT 33.3 % (35.0-45.0); HEMOGLOBIN 10.9 gm/dL (12.0-16.0); MEAN CELL VOLUME 98.8 FL (83-96); MEAN CORPUSCULAR HEMOGLOBIN 32.4 PG (28-34); MEAN CORPUSCULAR HGB CONC 32.8 g/dL (30-36); MEAN PLATELET VOLUME 8.4 FL (6.5-11.5); RED BLOOD COUNT 3.37 X10e (3.90-5.30); WHITE BLOOD COUNT 3.3 X10e3 (4.0-10.5)
[2016-10-31 09:52] LABS: ALBUMIN SERUM 2.8 g/dL (3.5-5.0); BILIRUBIN,TOTAL 0.4 mg/dL (0.2-2.0); BUN/CREATININE RATIO 11.42; CALCIUM SERUM 8.2 mg/dL (8.4-10.2); CREATININE SERUM 0.7 mg/dL (0.6-1.4); GLOM FILT RATE Estimated 83.6 mL/min (>60); POTASSIUM 3.9 mmol/L (3.5-5.1); PROTEIN TOTAL SERUM 5.7 g/dL (6.0-8.3)
[2016-10-31 10:21] LABS: %MB 0.6 % (0.0-4.0); MB 1.8 ng/ml
== END 2016-11-02 10:46 | DRG 872 ==
LOC: CED 22:15 → CEDOF 10-28 05:00 → C5C 10-28 17:21
PROVIDERS: Emergency Medicine; Internal Medicine
PROC: B24BYZZ Ultrasonography of Heart with Aorta using Other Contrast (ICD-10-PCS; principal; 2016-10-31)
DX: A41.9 Sepsis, unspecified organism (principal); D61.818 Other pancytopenia; M62.82 Rhabdomyolysis; G62.9 Polyneuropathy, unspecified; I11.0 Hypertensive heart disease with heart failure; I50.22 Chronic systolic (congestive) heart failure; I49.5 Sick sinus syndrome; N39.0 Urinary tract infection, site not specified; I08.1 Rheumatic disorders of both mitral and tricuspid valves; I25.5 Ischemic cardiomyopathy; E78.5 Hyperlipidemia, unspecified; E03.9 Hypothyroidism, unspecified; M19.90 Unspecified osteoarthritis, unspecified site; K21.9 Gastro-esophageal reflux disease without esophagitis; F41.9 Anxiety disorder, unspecified; F32.9 Major depressive disorder, single episode, unspecified; Z90.49 Acquired absence of other specified parts of digestive tract; Z90.710 Acquired absence of both cervix and uterus; Z85.820 Personal history of malignant melanoma of skin; Z88.2 Allergy status to sulfonamides; G89.29 Other chronic pain; Z95.1 Presence of aortocoronary bypass graft; I49.1 Atrial premature depolarization; I49.3 Ventricular premature depolarization; R00.1 Bradycardia, unspecified; I95.2 Hypotension due to drugs; E53.8 Deficiency of other specified B group vitamins; W19.XXXA Unspecified fall, initial encounter; R55 Syncope and collapse
CPT/HCPCS: 36415; 70450; 71020; 73552; 80048; 80053; 80061; 80076; 81003; 82550; 82553; 82607; 82947; 83605; 83735; 83880; 84443; 84484; 85025; 85027; 85610; 85730; 87040; 87086; 93005; 93225; 93226; 93306; 93970; 97110; 97116; 97162; 97166; 97530; 97535; 99285; G8978-GP; G8979-GP; G8987-GO; G8988-GO; J0696; J1650; J2270; J2543; J3370; J3420

== ENCOUNTER 2017-01-05 12:09 | Emergency (ER) | payer MEDICARE ==
[~2017-01-05 12:09] MED LIST changes: +LEVOTHYROXINE88 MCG PO; +LIPITOR40 MG PO; +NEURONTIN100 MG PO; +NEXIUM 24HR20 MG PO; +TRAMADOL HCL50 M2 PO
== END 2017-01-11 12:26 | disposition expired ==
LOC: CED 12:09
DX: I46.9 Cardiac arrest, cause unspecified (principal); Z88.2 Allergy status to sulfonamides; Z79.899 Other long term (current) drug therapy
CPT/HCPCS: 92950; 99285; J0171